=== PATIENT | male | born 1990 | race Caucasian/White ===

== ENCOUNTER 2024-02-22 14:35 | Emergency (ER) | payer MEDICAID ==
[~2024-02-22] VITALS: Ht 165.1 cm; Wt 99.8 kg
[2024-02-22 14:51] VITALS: BP_SYST 110; PULSE 74; RESP 22; TEMP 98.3; O2SAT 98
[2024-02-22 16:20] VITALS: BP_SYST 122; PULSE 85; RESP 18; TEMP 98.3; O2SAT 98
== END 2024-02-22 16:24 | disposition home or self-care (01) ==
LOC: SED 14:35
DX: Z00.8 Encounter for other general examination (principal)
CPT/HCPCS: 71045; 99283